=== PATIENT | female | born 1980 | race Caucasian/White ===

== ENCOUNTER 2019-02-15 21:32 | Emergency (ER) | payer BC ==
[2019-02-15] MEDS ORDERED: Sucralfate Suspension 1 GM/10 ML Cup PO ONE (21:42)
[2019-02-15] MEDS ORDERED: Pantoprazole 40 MG Vial IVPUSH SCH (21:45)
[2019-02-15] MEDS ORDERED: Aspirin 81 MG Tab.Chew PO ONE (21:50)
[2019-02-15 22:16] LABS: CHLORIDE,CL 90 mmol/L (98-107); SODIUM,NA 126 mmol/L (136-145)
[2019-02-15 22:20] VITALS: BP 114/71; PULSE 87
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
[2019-02-15] MEDS ORDERED: Sodium Chloride 0.9% 10 ML Syringe FLUSH PRN (22:36)
== END 2019-02-15 22:45 | disposition home or self-care (01) ==
LOC: LL.ED 21:32
DX: K29.00 Acute gastritis without bleeding (principal); F32.9 Major depressive disorder, single episode, unspecified; E66.9 Obesity, unspecified; F41.9 Anxiety disorder, unspecified; Z88.8 Allergy status to other drugs, medicaments and biological substances; Z79.899 Other long term (current) drug therapy; Z90.710 Acquired absence of both cervix and uterus; Z88.1 Allergy status to other antibiotic agents; Z88.0 Allergy status to penicillin; Z88.5 Allergy status to narcotic agent; Z68.41 Body mass index [BMI] 40.0-44.9, adult; Z98.890 Other specified postprocedural states; Z90.49 Acquired absence of other specified parts of digestive tract
CPT/HCPCS: 36415; 71045; 80053; 82550; 82553; 83605; 83735; 83880; 84443; 84484; 85025; 85379; 85610; 85730; 93005; 96374; 99285; A9270; C9113

== ENCOUNTER 2023-02-25 14:55 | Emergency (ER) | payer BC, OTHER ==
[2023-02-25 14:59] VITALS: BP 132/64; PULSE 90
== END 2023-02-25 16:24 | disposition home or self-care (01) ==
LOC: LL.ED 14:55
DX: S62.521A Displaced fracture of distal phalanx of right thumb, initial encounter for closed fracture (principal); S83.92XA Sprain of unspecified site of left knee, initial encounter; E78.5 Hyperlipidemia, unspecified; Z88.0 Allergy status to penicillin; Z88.1 Allergy status to other antibiotic agents; Z91.048 Other nonmedicinal substance allergy status; Z88.5 Allergy status to narcotic agent; W01.0XXA Fall on same level from slipping, tripping and stumbling without subsequent striking against object, initial encounter
CPT/HCPCS: 73090-RT; 73120-RT; 73562-LT; 99283

== ENCOUNTER 2025-05-10 12:33 | Emergency (ER) | payer OTHER, BC ==
[2025-05-10 12:56] VITALS: BP 110/64; PULSE 71
[2025-05-10] MEDS: Acetaminophen/HYDROcodone 325-10 MG Tab PO ONE (13:18)
[2025-05-10] MEDS: Ketorolac 30 MG/ML SDV IM ONE (14:23)
== END 2025-05-10 15:40 | disposition home or self-care (01) ==
LOC: LL.ED 12:33
DX: S62.326A Displaced fracture of shaft of fifth metacarpal bone, right hand, initial encounter for closed fracture (principal); E78.00 Pure hypercholesterolemia, unspecified; J45.909 Unspecified asthma, uncomplicated; E66.9 Obesity, unspecified; Z90.49 Acquired absence of other specified parts of digestive tract; Z90.710 Acquired absence of both cervix and uterus; Z88.0 Allergy status to penicillin; Z88.5 Allergy status to narcotic agent; Z88.8 Allergy status to other drugs, medicaments and biological substances; Z79.899 Other long term (current) drug therapy; W19.XXXA Unspecified fall, initial encounter
CPT/HCPCS: 26605; 71046; 71100-LT; 73120-RT; 73130-RT; 96372; 99283-25; A9270-GY; J1885; J2003

== ENCOUNTER 2025-06-14 00:19 | Emergency (ER) | payer OTHER, BC ==
[2025-06-14] MEDS ORDERED: Sodium Chloride 0.9% 10 ML Syringe FLUSH PRN (00:48)
[2025-06-14 00:59] LABS: BASOPHILS ABSOLUTE AUTO 0.02 K/uL (0.00-0.20); BASOPHILS PERCENT AUTO 0.2 % (0.0-2.0); EOSINOPHILS ABSOLUTE AUTO 0.04 K/uL (0.00-0.50); EOSINOPHILS PERCENT AUTO 0.5 % (0.0-5.0); IMMATURE GRAN ABSOLUTE AUTO 0.02 10^3/uL (0.00-0.04); IMMATURE GRAN PERCENT AUTO 0.2 % (0.0-0.4); LYMPHOCYTES ABSOLUTE AUTO 0.90 K/uL (0.50-3.50); LYMPHOCYTES PERCENT AUTO 10.2 % (10.0-50.0); MONOCYTES ABSOLUTE AUTO 1.04 K/uL (0.00-1.00); MONOCYTES PERCENT AUTO 11.8 % (2.0-14.0); NEUTROPHILS ABSOLUTE AUTO 6.81 K/uL (1.40-7.00); NEUTROPHILS PERCENT AUTO 77.1 % (45.0-80.0); PLATELET COUNT,PLT 191 K/uL (150-350); RED BLOOD CELL COUNT 3.61 M/uL (3.77-5.09); RED CELL DISTRIBUTION WIDTH 13.6 % (11.2-14.1); WHITE BLOOD CELL COUNT,WBC 8.8 K/uL (4.0-10.2)
[2025-06-14] MEDS: Lactated Ringers 1,000 ML IV SCH (01:02)
[2025-06-14 01:32] LABS: ALANINE AMINOTRANSFERASE,ALT 31 U/L (12-78); ASPARTATE AMNIOTRANSFERASE,AST 20 U/L (15-37); BILIRUBIN TOTAL 0.5 mg/dL (0.2-1.0); BLOOD UREA NITROGEN,BUN 15 mg/dL (7-18); CARBON DIOXIDE,CO2 25.1 mmol/L (21.0-32.0); CHLORIDE,CL 99 mmol/L (98-107); CREATININE 1.18 mg/dL (0.51-1.17); GLUCOSE RANDOM 96 mg/dL (70-99); POTASSIUM,K 3.3 mmol/L (3.5-5.1); PROTEIN TOTAL,TP 7.4 g/dL (6.4-8.2); SODIUM,NA 137 mmol/L (136-145)
[2025-06-14 01:33] LABS: ESTIMATED GFR 58 mL/min (>=60)
[2025-06-14 01:38] LABS: LACTIC ACID 0.5 mmol/L (0.4-2.0)
[2025-06-14 01:43] LABS: APPEARANCE,URINE SLIGHTLY CLOUDY; GLUCOSE,URINE NEGATIVE (NEGATIVE); OCCULT BLOOD,URINE LARGE (NEGATIVE)
[2025-06-14 01:49] LABS: SQUAMOUS EPITHELIAL CELLS,UR FEW /HPF (NOT SEEN)
[2025-06-14] MEDS: Iopamidol 612 MG/ML 100 ML Bottle ONE (02:08)
[2025-06-14] MEDS: Ketorolac 15 MG/ML SDV IVPUSH ONE (03:05)
[2025-06-14 04:21] VITALS: BP 105/78; PULSE 70
== END 2025-06-14 04:00 | disposition home or self-care (01) ==
LOC: LL.ED 00:19
DX: N12 Tubulo-interstitial nephritis, not specified as acute or chronic (principal); E78.00 Pure hypercholesterolemia, unspecified; Z91.048 Other nonmedicinal substance allergy status; Z88.0 Allergy status to penicillin; Z88.5 Allergy status to narcotic agent; Z88.1 Allergy status to other antibiotic agents; Z79.899 Other long term (current) drug therapy
CPT/HCPCS: 36415; 74178; 80053; 81001; 83605; 85025; 86140; 87086; 87088; 87186; 96361; 96374; 96375; 99284; 99284-25; A9270-GY; J0696; J1885; J7120; Q9967